=== PATIENT | male | born 1945 | race African-American/Black ===

== ENCOUNTER 2017-08-08 13:44 | Inpatient (IN) | payer MEDICARE ==
[~2017-08-08] VITALS: Ht 182.9 cm; Wt 68.0 kg
[2017-08-08 14:13] VITALS: BP 108/81
[2017-08-08] MEDS ORDERED: Solu-MEDROL 125mg Inj IVP ONE (15:15)
[2017-08-08] MEDS: Albuterol ud Inhalation HHN SCH ×3 (15:22→15:29)
[2017-08-08] MEDS: Ipratropium 0.02% Inh Soln 2.5ml UD HHN SCH ×3 (15:22→15:29)
--- NOTE | 2017-08-08 15:31 | Emergency Room Report ---
History of Present Illness General Chief Complaint: Generalized Weakness Source: Patient Present Illness HPI 72-year-old male with a 66-[id number] history of tobacco use and history of hypertension comes to the ER with a complaint of cough with whitish sputum production for 1 month and shortness of breath He reports no chest pain unless he coughs and currently has no chest pain. He denies hemoptysis, denies fevers, denies leg pain or swelling. He reports he 's been taking inhalers intermittently without much relief. He denies any recent steroid or antibiotic use. Allergies: Coded Allergies: No Known Allergies (Unverified , 08/08/17) Patient History Past Medical History: see triage record Reviewed Nursing Documentation: PMH: Agreed, PSxH: Agreed Nursing Documentation-PMH Hx Hypertension: Yes Review of Systems All Other Systems: negative except mentioned in HPI Physical Exam Vital Signs Date Time Temp Pulse Resp B/P (MAP) Pulse Ox O2 Delivery O2 Flow Rate FiO2 08/08/17 14:08 97.8 88 15 108/81 94 Room Air 97.9 Sp02 EP Interpretation: reviewed, abnormal - RN told me O2 sat was 89% on room air General Appearance: no apparent distress, alert, non-toxic Head: normocephalic Eyes: bilateral eye normal inspection, bilateral eye PERRL, bilateral eye EOMI ENT: normal ENT inspection, hearing grossly normal, normal pharynx, no angioedema, normal voice, moist mucus membranes Neck: normal inspection, full range of motion, supple, supple/symm/no masses Respiratory: chest non-tender, lungs clear - Poor air exchange, normal breath sounds, chest symmetrical, palpation of chest normal Cardiovascular #1: normal peripheral pulses, regular rate, rhythm Cardiovascular #2: 2+ radial (R), 2+ radial (L) Gastrointestinal: normal inspection, non tender, soft, no mass, no guarding, no rebound Rectal: deferred Genitourinary: normal inspection, no CVA tenderness Musculoskeletal: back normal, gait/station normal, normal range of motion, non- tender, no calf tenderness Neurologic: alert, responsive, intermediate card tender III-XII nml as tested, motor strength/tone normal, sensory intact, speech normal Psychiatric: judgement/insight normal, memory normal, mood/affect normal, no suicidal/homicidal ideation Skin: normal color, no rash, warm/dry, normal turgor Lymphatic: no adenopathy Medical Decision Making Medical: COPD Reaction to Intervention: Improved Diagnostic Impression: Primary Impression: COPD exacerbation ER Course Patient with COPD exacerbation, had poor air exchange initially on exam, was given multiple nebulizer treatments as well as IV steroids and felt improvement and had objective improvement in air exchange on exam as well his initial hypoxia is only very mild and improved. She'll be discharged with steroids and a new inhaler and follow-up with his PMD. Diagnosis COPD exacerbation. EKG Diagnostic Results EKG Time: 15:25 EP Interpretation: nsr rate 75, no st-t changes, no twi, no S1Q3T3 Rate: normal Rhythm: NSR ST Segments: no acute changes ASA given to the pt in ED: No - no cp Rhythm Strip Diag. Results Rhythm Strip Time: 15:29 EP Interpretation: yes Rate: 75 Rhythm: NSR, no PVC's, no ectopy Chest X-Ray Diagnostic Results Chest X-Ray Diagnostic Results : Chest X-Ray Ordered: Yes # of Views/Limited/Complete: 1 View Indication: Shortness of Breath EP Interpretation: Yes PA Xray: Interpretation reviewed Interpretation: no consolidation, no effusion, no pneumothorax, no acute cardiopulmonary disease Impression: No acute disease Electronically Signed by: Cecilia Hung MD Last Vital Signs Date Time Temp Pulse Resp B/P (MAP) Pulse Ox O2 Delivery O2 Flow Rate FiO2 08/08/17 14:13 97.8 88 15 108/81 94 Room Air 97.8 Status: improved Reevaluation Impression Patient with likely COPD exacerbation, he had negative Homans sign on exam, he was not tachycardic not having hemoptysis and not having chest pain. He was hypoxic and the nurse charted multiple times O2 sats in the mid 80s on room air on just resting calmly. This may be chronic for him however that is a very low oxygen saturation and he is not set up with home O2. He will need to, Hospital for repeat nebulizer treatments and setting up for home O2 as I suspect he will come more hypoxic with ambulation. Disposition: ADMITTED INPATIENT Condition: Stable Scripts Prednisone* (PREDNISONE*) 20 Mg Tablet 40 MG ORAL DAILY, #5 TAB Prov: CECILIA HUNG M.D 08/08/17 Albuterol Sulfate* (ALBUTEROL SULFATE MDI*) 8.5 Gm Hfa.aer.ad 2 PUFF INH Q4H Y for cough/wheezing, #1 EA 0 Refills Prov: CECILIA HUNG M.D 08/08/17 Referrals: NON PHYSICIAN (PCP) CECILIA HUNG M.D Aug 08, 2017 15:31
[2017-08-08 15:38] LABS: BASOPHILS % (AUTO) 0.5 % (0.0-2.0); HEMATOCRIT 39.5 % (42.0-52.0); HEMOGLOBIN 13.6 G/DL (14.2-18.0); LYMPHOCYTES % (AUTO) 6.6 % (20.0-45.0); MEAN CORPUSCULAR VOLUME 95 FL (80-99); NEUTROPHILS % (AUTO) 82.9 % (45.0-75.0); PLATELET COUNT 129 K/UL (150-450); RED BLOOD COUNT 4.14 M/UL (4.70-6.10); RED CELL DISTRIBUTION WIDTH 11.7 % (11.6-14.8); WHITE BLOOD COUNT 11.7 K/UL (4.8-10.8)
--- NOTE | 2017-08-08 15:51 | Diagnostic Imaging Report ---
Indication: Shortness of breath Technique: One view of the chest Comparison: And Findings: The lungs are hyperinflated. The lungs and pleural spaces are clear. Heart size is normal. Impression: COPD changes. No acute process
[2017-08-08 15:55] LABS: ANION GAP 8 mmol/L (5-15); BLOOD UREA NITROGEN 34 mg/dL (7-18); CALCIUM 8.4 MG/DL (8.5-10.1); CARBON DIOXIDE 29 MMOL/L (21-32); CHLORIDE 100 MMOL/L (98-107); CREATININE 1.4 MG/DL (0.55-1.30); POTASSIUM 4.3 MMOL/L (3.5-5.1); SODIUM 137 MMOL/L (136-145)
[2017-08-08 15:59] LABS: ALANINE AMINOTRANSFERASE 30 U/L (12-78); ALBUMIN 3.2 G/DL (3.4-5.0); ALBUMIN/GLOBULIN RATIO 0.7 (1.0-2.7); ALKALINE PHOSPHATASE 64 U/L (46-116); ASPARTATE AMINO TRANSFERASE 52 U/L (15-37); BILIRUBIN,TOTAL 0.6 MG/DL (0.2-1.0)
[2017-08-08 16:29] VITALS: BP 117/91
[2017-08-08] MEDS ORDERED: PREDNISONE20 MG ORAL (17:20)
[2017-08-08] MEDS ORDERED: ALBUTEROL SULF8.5 GM INH (17:20)
[2017-08-08 17:23] VITALS: BP 122/90
[2017-08-08] MEDS ORDERED: Albuterol ud Inhalation HHN ONE (18:30)
[2017-08-08 19:35] VITALS: BP 110/79
[2017-08-08 20:30] VITALS: BP 115/78
[2017-08-08] MEDS ORDERED: HYDROcodone/Acetamin 10/325 tab ORAL PRN (21:15)
[2017-08-08] MEDS ORDERED: Morphine Sulfate 2mg/ml Inj IVP PRN (21:15)
[2017-08-08] MEDS ORDERED: Albuterol/Ipratropium 3ml neb HHN PRN (21:15)
--- NOTE | 2017-08-08 22:06 | Infectious Diseases Prog Note ---
Assessment/Plan Problems: (1) CAP (community acquired pneumonia) Assessment & Plan: with B/L lower lobes infiltrates and RML infiltrates, will start levaquin empiric coverage, and send sputum culture , monitor CXR (2) COPD exacerbation Assessment & Plan: will start levaquin empiric coverage, continue inhalers , and taper steroids (3) Cough Assessment & Plan: due to the above, continue inhales and oxygen as needed (4) SOB (shortness of breath) Assessment & Plan: due to the above with no evidence of PE on CTA, continue inhalers and symptomatic treatment Subjective Allergies: Coded Allergies: No Known Allergies (Unverified , 08/08/17) Objective Vital Signs Last 24 Hour Vital Signs Date Time Temp Pulse Resp B/P (MAP) Pulse Ox O2 Delivery O2 Flow Rate FiO2 08/08/17 21:45 96 Nasal Cannula 3.0 32 08/08/17 21:40 Nasal Cannula 3.0 32 08/08/17 20:30 98.8 84 17 115/78 96 Nasal Cannula 2.0 209.8 08/08/17 20:30 98.8 84 17 115/78 96 Nasal Cannula 2.0 98.8 08/08/17 19:35 98.7 87 16 110/79 97 Nasal Cannula 2.0 98.7 08/08/17 19:23 85 17 95 Nasal Cannula 2.0 28 08/08/17 18:35 28 08/08/17 18:34 85 17 95 Nasal Cannula 2.0 28 08/08/17 17:23 85 17 122/90 82 Room Air 08/08/17 16:29 98.9 87 14 117/91 93 Nasal Cannula 2.0 98.9 08/08/17 15:50 82 14 100 Nasal Cannula 2.0 28 08/08/17 15:25 80 16 95 Nasal Cannula 2.0 28 08/08/17 15:25 80 16 Nasal Cannula 2.0 28 08/08/17 14:13 97.8 88 15 108/81 94 Room Air 97.8 08/08/17 14:08 97.8 88 15 108/81 94 Room Air 97.9 Height (Feet): 6 Weight (Pounds): 150 Laboratory Tests Test 08/08/17 15:20 08/08/17 15:25 White Blood Count 11.7 K/UL (4.8-10.8) H Red Blood Count 4.14 M/UL (4.70-6.10) L Hemoglobin 13.6 G/DL (14.2-18.0) L Hematocrit 39.5 % (42.0-52.0) L Mean Corpuscular Volume 95 FL (80-99) Mean Corpuscular Hemoglobin 32.9 PG (27.0-31.0) H Mean Corpuscular Hemoglobin Concent 34.5 G/DL (32.0-36.0) Red Cell Distribution Width 11.7 % (11.6-14.8) Platelet Count 129 K/UL (150-450) L Mean Platelet Volume 8.0 FL (6.5-10.1) Neutrophils (%) (Auto) 82.9 % (45.0-75.0) H Lymphocytes (%) (Auto) 6.6 % (20.0-45.0) L Monocytes (%) (Auto) 10.0 % (1.0-10.0) Eosinophils (%) (Auto) 0.0 % (0.0-3.0) Basophils (%) (Auto) 0.5 % (0.0-2.0) Sodium Level 137 MMOL/L (136-145) Potassium Level 4.3 MMOL/L (3.5-5.1) Chloride Level 100 MMOL/L (98-107) Carbon Dioxide Level 29 MMOL/L (21-32) Anion Gap 8 mmol/L (5-15) Blood Urea Nitrogen 34 mg/dL (7-18) H Creatinine 1.4 MG/DL (0.55-1.30) H Estimat Glomerular Filtration Rate mL/min (>60) Glucose Level 118 MG/DL (74-106) H Calcium Level 8.4 MG/DL (8.5-10.1) L Total Bilirubin 0.6 MG/DL (0.2-1.0) Aspartate Amino Transf (AST/SGOT) 52 U/L (15-37) H Alanine Aminotransferase (ALT/SGPT) 30 U/L (12-78) Alkaline Phosphatase 64 U/L (46-116) Troponin I 0.000 ng/mL (0.000-0.056) Total Protein 7.5 G/DL (6.4-8.2) Albumin 3.2 G/DL (3.4-5.0) L Globulin 4.3 g/dL Albumin/Globulin Ratio 0.7 (1.0-2.7) L Arterial Blood pH 7.380 (7.350-7.450) Arterial Blood Partial Pressure CO2 47.9 mmHg (35.0-45.0) H Arterial Blood Partial Pressure O2 55.3 mmHg (75.0-100.0) L Arterial Blood HCO3 27.8 mmol/L (22.0-26.0) H Arterial Blood Oxygen Saturation 86.4 % (92.0-98.0) L Arterial Blood Base Excess 2.0 Manuel Test Positive Current Medications Medications (Trade) Dose Ordered Sig/Sandie Route PRN Reason Start Time Stop Time Status Last Admin Dose Admin Acetaminophen (Tylenol) 650 mg Q4H PRN ORAL Mild Pain (Pain Scale 1-3) 08/08/17 21:15 09/07/17 21:14 Acetaminophen/ Hydrocodone Bitart ([place] 10/325) 1 tab Q4H PRN ORAL Moderate Pain (Pain Scale 4-6) 08/08/17 21:15 08/15/17 21:14 Albuterol/ Ipratropium (Albuterol/ Ipratropium) 3 ml Q4HR PRN HHN Shortness of Breath 08/08/17 21:15 08/13/17 21:14 Dextrose (Dextrose 50%) STAT PRN IV Hypoglycemia 08/08/17 21:15 09/07/17 21:14 Heparin Sodium (Porcine) (Heparin 5000 units/ml) 5,000 units EVERY 12 HOURS SUBQ 08/09/17 09:00 09/08/17 08:59 Methylprednisolone Sodium Succinate (Solu-MEDROL) 40 mg EVERY 8 HOURS IVP 08/08/17 22:00 09/07/17 21:59 Morphine Sulfate (Morphine Sulfate) 2 mg Q4HR PRN IVP Severe Pain (Pain Scale 7-10) 08/08/17 21:15 08/15/17 21:14 Ondansetron HCl (Zofran) 4 mg Q6H PRN IVP Nausea & Vomiting 08/08/17 21:15 09/07/17 21:14 Linda Roca M.D. Aug 08, 2017 22:06
[2017-08-08] MEDS: Solu-MEDROL 40mg Inj IVP SCH (22:24)
[2017-08-09 04:00] VITALS: BP 103/75
[2017-08-09 06:51] LABS: ANION GAP 9 mmol/L (5-15); BLOOD UREA NITROGEN 27 mg/dL (7-18); CALCIUM 8.6 MG/DL (8.5-10.1); CARBON DIOXIDE 29 MMOL/L (21-32); CHLORIDE 100 MMOL/L (98-107); CREATININE 1.3 MG/DL (0.55-1.30); POTASSIUM 3.7 MMOL/L (3.5-5.1); SODIUM 138 MMOL/L (136-145)
[2017-08-09] MEDS: Solu-MEDROL 40mg Inj IVP SCH ×2 (06:53→21:56)
[2017-08-09 06:58] LABS: HEMATOCRIT 37.1 % (42.0-52.0); HEMOGLOBIN 12.6 G/DL (14.2-18.0); MEAN CORPUSCULAR VOLUME 96 FL (80-99); PLATELET COUNT 124 K/UL (150-450); RED BLOOD COUNT 3.87 M/UL (4.70-6.10); RED CELL DISTRIBUTION WIDTH 11.9 % (11.6-14.8); WHITE BLOOD COUNT 16.1 K/UL (4.8-10.8)
[2017-08-09] MEDS: Heparin 5000 units/ml inj SUBQ SCH ×2 (08:18→21:57)
[2017-08-09 09:00] VITALS: BP 100/73
--- NOTE | 2017-08-09 09:44 | Diagnostic Imaging Report ---
Indication: Dyspnea Technique: CT pulmonary angiogram performed utilizing automated exposure control with intravenous contrast. Axial, sagittal and coronal reconstructions were obtained. 3-D volumetric reconstructions were also performed. CT dose: Total DLP 603.83 mGycm; CTDI vol 13.94 mGy Comparison: Correlation made to concurrent chest radiograph. Findings: Adequate opacification of the pulmonary arteries was achieved. There is no embolism. There is aneurysmal dilatation of the ascending aorta measuring up to proximal by 4 cm. No evidence of aortic dissection. There is common origin of the right brachiocephalic and left common carotid arteries, a normal anatomic variant. Visualized portions of the abdominal aorta normal in caliber. Emphysematous changes are noted in the lungs, more pronounced in the upper lungs. Bilateral lower lobe and right middle lobe infiltrates are noted. There is peribronchial thickening and debris in small airways. There is no pleural effusion or pneumothorax. Heart size within normal limits. There is no pericardial effusion. A low-attenuation focus is noted within the left kidney, too small to fully characterize but possibly representing a cyst. No acute bony abnormality is seen. IMPRESSION: No evidence of pulmonary embolism. Aneurysmal dilatation of the ascending aorta up to 4 cm area Pulmonary emphysema with bilateral lower lobe and right middle lobe infiltrates and peribronchial thickening with debris in the small airways. Additional findings as above. The CT scanner at [facility] is accredited by the [employer] and the scans are performed using protocols designed to limit radiation exposure to as low as reasonably achievable to attain images of sufficient resolution adequate for diagnostic evaluation.
[2017-08-09 12:00] VITALS: BP 106/75
--- NOTE | 2017-08-09 14:26 | Infectious Diseases Prog Note ---
Assessment/Plan Problems: (1) CAP (community acquired pneumonia) Assessment & Plan: with B/L lower lobes infiltrates and RML infiltrates, continue levaquin empiric coverage, and send sputum culture , monitor CXR (2) COPD exacerbation Assessment & Plan: continue levaquin empiric coverage, continue inhalers , and taper steroids (3) Cough Assessment & Plan: due to the above, continue inhales and oxygen as needed (4) SOB (shortness of breath) Assessment & Plan: due to the above with no evidence of PE on CTA, continue inhalers and symptomatic treatment Subjective Constitutional: Reports: no symptoms HEENT: Reports: no symptoms Respiratory: Reports: shortness of breath, productive cough Breasts: Reports: no symptoms Cardiovascular: Reports: no symptoms Gastrointestinal/Abdominal: Reports: no symptoms Genitourinary: Reports: no symptoms Neurologic: Reports: no symptoms Psychiatric: Reports: no symptoms Skin: Reports: no symptoms Endocrine: Reports: no symptoms Hematologic: Reports: no symptoms Musculoskeletal: Reports: no symptoms Allergies: Coded Allergies: No Known Allergies (Unverified , 08/08/17) Objective Vital Signs Last 24 Hour Vital Signs Date Time Temp Pulse Resp B/P (MAP) Pulse Ox O2 Delivery O2 Flow Rate FiO2 08/09/17 12:00 98.2 79 20 106/75 92 98.2 08/09/17 12:00 85 08/09/17 09:00 98.1 81 20 100/73 93 98.1 08/09/17 08:14 94 Nasal Cannula 2.0 28 08/09/17 08:14 86 20 Nasal Cannula 2.0 28 08/09/17 08:14 Nasal Cannula 2.0 28 08/09/17 08:00 84 08/09/17 04:00 78 08/09/17 04:00 97.9 81 20 103/75 95 97.9 08/08/17 21:45 96 Nasal Cannula 3.0 32 08/08/17 21:40 Nasal Cannula 3.0 32 08/08/17 20:30 98.8 84 17 115/78 96 Nasal Cannula 2.0 209.8 08/08/17 20:30 98.8 84 17 115/78 96 Nasal Cannula 2.0 98.8 08/08/17 19:35 98.7 87 16 110/79 97 Nasal Cannula 2.0 98.7 08/08/17 19:23 85 17 95 Nasal Cannula 2.0 28 08/08/17 18:35 28 08/08/17 18:34 85 17 95 Nasal Cannula 2.0 28 08/08/17 17:23 85 17 122/90 82 Room Air 08/08/17 16:29 98.9 87 14 117/91 93 Nasal Cannula 2.0 98.9 08/08/17 15:50 82 14 100 Nasal Cannula 2.0 28 08/08/17 15:25 80 16 95 Nasal Cannula 2.0 28 08/08/17 15:25 80 16 Nasal Cannula 2.0 28 Height (Feet): 6 Height (Inches): 0.00 Weight (Pounds): 150 General Appearance: WD/WN, no acute distress HEENT: normocephalic, atraumatic, anicteric, mucous membranes moist, PERRL Respiratory/Chest: chest wall non-tender, no respiratory distress, no accessory muscle use, decreased breath sounds, crackles/rales, inspiratory wheezing Cardiovascular: normal peripheral pulses, normal rate, regular rhythm, no gallop/murmur, no JVD Abdomen: normal bowel sounds, soft, non tender, no organomegaly, non distended , no mass, no scars Genitourinary: normal external genitalia Extremities: no cyanosis, no clubbing Skin: no rash, no lesions, no ulcers Neurologic/Psychiatric: alert, oriented x 3, responsive Lymphatic: no neck adenopathy, no groin adenopathy Laboratory Tests Test 08/08/17 15:20 08/08/17 15:25 08/09/17 05:50 White Blood Count 11.7 K/UL (4.8-10.8) H 16.1 K/UL (4.8-10.8) H Red Blood Count 4.14 M/UL (4.70-6.10) L 3.87 M/UL (4.70-6.10) L Hemoglobin 13.6 G/DL (14.2-18.0) L 12.6 G/DL (14.2-18.0) L Hematocrit 39.5 % (42.0-52.0) L 37.1 % (42.0-52.0) L Mean Corpuscular Volume 95 FL (80-99) 96 FL (80-99) Mean Corpuscular Hemoglobin 32.9 PG (27.0-31.0) H 32.6 PG (27.0-31.0) H Mean Corpuscular Hemoglobin Concent 34.5 G/DL (32.0-36.0) 34.0 G/DL (32.0-36.0) Red Cell Distribution Width 11.7 % (11.6-14.8) 11.9 % (11.6-14.8) Platelet Count 129 K/UL (150-450) L 124 K/UL (150-450) L Mean Platelet Volume 8.0 FL (6.5-10.1) 7.9 FL (6.5-10.1) Neutrophils (%) (Auto) 82.9 % (45.0-75.0) H % (45.0-75.0) Lymphocytes (%) (Auto) 6.6 % (20.0-45.0) L % (20.0-45.0) Monocytes (%) (Auto) 10.0 % (1.0-10.0) % (1.0-10.0) Eosinophils (%) (Auto) 0.0 % (0.0-3.0) % (0.0-3.0) Basophils (%) (Auto) 0.5 % (0.0-2.0) % (0.0-2.0) Sodium Level 137 MMOL/L (136-145) 138 MMOL/L (136-145) Potassium Level 4.3 MMOL/L (3.5-5.1) 3.7 MMOL/L (3.5-5.1) Chloride Level 100 MMOL/L (98-107) 100 MMOL/L (98-107) Carbon Dioxide Level 29 MMOL/L (21-32) 29 MMOL/L (21-32) Anion Gap 8 mmol/L (5-15) 9 mmol/L (5-15) Blood Urea Nitrogen 34 mg/dL (7-18) H 27 mg/dL (7-18) H Creatinine 1.4 MG/DL (0.55-1.30) H 1.3 MG/DL (0.55-1.30) Estimat Glomerular Filtration Rate mL/min (>60) mL/min (>60) Glucose Level 118 MG/DL (74-106) H 178 MG/DL (74-106) H Calcium Level 8.4 MG/DL (8.5-10.1) L 8.6 MG/DL (8.5-10.1) Total Bilirubin 0.6 MG/DL (0.2-1.0) Aspartate Amino Transf (AST/SGOT) 52 U/L (15-37) H Alanine Aminotransferase (ALT/SGPT) 30 U/L (12-78) Alkaline Phosphatase 64 U/L (46-116) Troponin I 0.000 ng/mL (0.000-0.056) Total Protein 7.5 G/DL (6.4-8.2) Albumin 3.2 G/DL (3.4-5.0) L Globulin 4.3 g/dL Albumin/Globulin Ratio 0.7 (1.0-2.7) L Arterial Blood pH 7.380 (7.350-7.450) Arterial Blood Partial Pressure CO2 47.9 mmHg (35.0-45.0) H Arterial Blood Partial Pressure O2 55.3 mmHg (75.0-100.0) L Arterial Blood HCO3 27.8 mmol/L (22.0-26.0) H Arterial Blood Oxygen Saturation 86.4 % (92.0-98.0) L Arterial Blood Base Excess 2.0 Manuel Test Positive Differential Total Cells Counted 100 Neutrophils % (Manual) 82 % (45-75) H Lymphocytes % (Manual) 2 % (20-45) L Monocytes % (Manual) 10 % (1-10) Eosinophils % (Manual) 0 % (0-3) Basophils % (Manual) 0 % (0-2) Band Neutrophils 6 % (0-8) Platelet Estimate Decreased L Platelet Morphology Normal Red Blood Cell Morphology Normal Current Medications Medications (Trade) Dose Ordered Sig/Sandie Route PRN Reason Start Time Stop Time Status Last Admin Dose Admin Acetaminophen (Tylenol) 650 mg Q4H PRN ORAL Mild Pain (Pain Scale 1-3) 08/08/17 21:15 09/07/17 21:14 Acetaminophen/ Hydrocodone Bitart ([place] 10/325) 1 tab Q4H PRN ORAL Moderate Pain (Pain Scale 4-6) 08/08/17 21:15 08/15/17 21:14 Albuterol/ Ipratropium (Albuterol/ Ipratropium) 3 ml Q4HR PRN HHN Shortness of Breath 08/08/17 21:15 08/13/17 21:14 Dextrose (Dextrose 50%) STAT PRN IV Hypoglycemia 08/08/17 21:15 09/07/17 21:14 Heparin Sodium (Porcine) (Heparin 5000 units/ml) 5,000 units EVERY 12 HOURS SUBQ 08/09/17 09:00 09/08/17 08:59 08/09/17 08:18 Levofloxacin 100 ml @ 100 mls/hr Q24H IVPB 08/09/17 22:00 08/16/17 21:59 Methylprednisolone Sodium Succinate (Solu-MEDROL) 40 mg EVERY 12 HOURS IVP 08/09/17 21:00 09/07/17 21:59 Morphine Sulfate (Morphine Sulfate) 2 mg Q4HR PRN IVP Severe Pain (Pain Scale 7-10) 08/08/17 21:15 08/15/17 21:14 Ondansetron HCl (Zofran) 4 mg Q6H PRN IVP Nausea & Vomiting 08/08/17 21:15 09/07/17 21:14 Linda Roca M.D. Aug 09, 2017 14:26
[2017-08-09 16:00] VITALS: BP 104/77
--- NOTE | 2017-08-09 17:30 | History and Physical ---
History of Present Illness General Date patient seen: Aug 09, 2017 Reason for Hospitalization: Generalized Weakness Present Illness HPI This is a 72-year-old male with a 34-[id number]-[id number] history of tobacco use and history of hypertension who presented to the ER c/o cough with whitish sputum production for 1 month and shortness of breath. He denied chest pain. He denied hemoptysis, fevers, or chills. He reports he's been using inhalers intermittently without much relief. He denies any recent steroid or antibiotic use. He was admitted for further care. Allergies: Coded Allergies: No Known Allergies (Unverified , 08/08/17) Medication History Scheduled Prednisone* (Prednisone*), 40 MG ORAL DAILY Scheduled PRN Albuterol Sulfate* (Albuterol Sulfate Mdi*), 2 PUFF INH Q4H PRN for cough/ wheezing Patient History History Provided By: Patient Healthcare decision maker Jessica Robles daughter Resuscitation status Full Code Advanced Directive on File No Past Medical/Surgical History Past Medical/Surgical History: (1) COPD (chronic obstructive pulmonary disease) (2) HTN (hypertension) Review of Systems All Other Systems: negative except mentioned in HPI Physical Exam General Appearance: WD/WN, no apparent distress HEENT: normocephalic Neck: supple Respiratory/Chest: decreased breath sounds Cardiovascular/Chest: normal rate, regular rhythm Abdomen: non tender, soft Extremities: no edema Neurologic: alert, oriented x 3 Last 24 Hour Vital Signs Date Time Temp Pulse Resp B/P (MAP) Pulse Ox O2 Delivery O2 Flow Rate FiO2 08/09/17 16:00 98.2 75 20 104/77 94 98.2 08/09/17 12:00 98.2 79 20 106/75 92 98.2 08/09/17 12:00 85 08/09/17 09:00 98.1 81 20 100/73 93 98.1 08/09/17 08:14 94 Nasal Cannula 2.0 28 08/09/17 08:14 86 20 Nasal Cannula 2.0 28 08/09/17 08:14 Nasal Cannula 2.0 28 08/09/17 08:00 84 08/09/17 04:00 78 08/09/17 04:00 97.9 81 20 103/75 95 97.9 08/08/17 21:45 96 Nasal Cannula 3.0 32 08/08/17 21:40 Nasal Cannula 3.0 32 3/16/18 20:30 98.8 84 17 115/78 96 Nasal Cannula 2.0 209.8 08/08/17 20:30 98.8 84 17 115/78 96 Nasal Cannula 2.0 98.8 08/08/17 19:35 98.7 87 16 110/79 97 Nasal Cannula 2.0 98.7 08/08/17 19:23 85 17 95 Nasal Cannula 2.0 28 08/08/17 18:35 28 08/08/17 18:34 85 17 95 Nasal Cannula 2.0 28 Intake and Output 08/08/17 08/09/17 19:00 07:00 Intake Total 0 ml 120 ml Balance 0 ml 120 ml Intake Oral 0 ml 120 ml Laboratory Tests Test 08/09/17 05:50 White Blood Count 16.1 K/UL (4.8-10.8) H Red Blood Count 3.87 M/UL (4.70-6.10) L Hemoglobin 12.6 G/DL (14.2-18.0) L Hematocrit 37.1 % (42.0-52.0) L Mean Corpuscular Volume 96 FL (80-99) Mean Corpuscular Hemoglobin 32.6 PG (27.0-31.0) H Mean Corpuscular Hemoglobin Concent 34.0 G/DL (32.0-36.0) Red Cell Distribution Width 11.9 % (11.6-14.8) Platelet Count 124 K/UL (150-450) L Mean Platelet Volume 7.9 FL (6.5-10.1) Neutrophils (%) (Auto) % (45.0-75.0) Lymphocytes (%) (Auto) % (20.0-45.0) Monocytes (%) (Auto) % (1.0-10.0) Eosinophils (%) (Auto) % (0.0-3.0) Basophils (%) (Auto) % (0.0-2.0) Differential Total Cells Counted 100 Neutrophils % (Manual) 82 % (45-75) H Lymphocytes % (Manual) 2 % (20-45) L Monocytes % (Manual) 10 % (1-10) Eosinophils % (Manual) 0 % (0-3) Basophils % (Manual) 0 % (0-2) Band Neutrophils 6 % (0-8) Platelet Estimate Decreased L Platelet Morphology Normal Red Blood Cell Morphology Normal Sodium Level 138 MMOL/L (136-145) Potassium Level 3.7 MMOL/L (3.5-5.1) Chloride Level 100 MMOL/L (98-107) Carbon Dioxide Level 29 MMOL/L (21-32) Anion Gap 9 mmol/L (5-15) Blood Urea Nitrogen 27 mg/dL (7-18) H Creatinine 1.3 MG/DL (0.55-1.30) Estimat Glomerular Filtration Rate mL/min (>60) Glucose Level 178 MG/DL (74-106) H Calcium Level 8.6 MG/DL (8.5-10.1) Height (Feet): 6 Height (Inches): 0.00 Weight (Pounds): 150 Medications Current Medications Medications (Trade) Dose Ordered Sig/Sandie Route PRN Reason Start Time Stop Time Status Last Admin Dose Admin Acetaminophen (Tylenol) 650 mg Q4H PRN ORAL Mild Pain (Pain Scale 1-3) 08/08/17 21:15 09/07/17 21:14 Acetaminophen/ Hydrocodone Bitart ([place] 10/325) 1 tab Q4H PRN ORAL Moderate Pain (Pain Scale 4-6) 08/08/17 21:15 08/15/17 21:14 Albuterol/ Ipratropium (Albuterol/ Ipratropium) 3 ml Q4HR PRN HHN Shortness of Breath 08/08/17 21:15 08/13/17 21:14 Dextrose (Dextrose 50%) STAT PRN IV Hypoglycemia 08/08/17 21:15 09/07/17 21:14 Heparin Sodium (Porcine) (Heparin 5000 units/ml) 5,000 units EVERY 12 HOURS SUBQ 08/09/17 09:00 09/08/17 08:59 08/09/17 08:18 Levofloxacin 100 ml @ 100 mls/hr Q24H IVPB 08/09/17 22:00 08/16/17 21:59 Methylprednisolone Sodium Succinate (Solu-MEDROL) 40 mg EVERY 12 HOURS IVP 08/09/17 21:00 09/07/17 21:59 Morphine Sulfate (Morphine Sulfate) 2 mg Q4HR PRN IVP Severe Pain (Pain Scale 7-10) 08/08/17 21:15 08/15/17 21:14 Ondansetron HCl (Zofran) 4 mg Q6H PRN IVP Nausea & Vomiting 08/08/17 21:15 09/07/17 21:14 Assessment/Plan Problem List: (1) COPD exacerbation ICD Codes: J44.1 - Chronic obstructive pulmonary disease with (acute) exacerbation SNOMED: 698752063 (2) CAP (community acquired pneumonia) ICD Codes: J18.9 - Pneumonia, unspecified organism SNOMED: 248084833 (3) SOB (shortness of breath) ICD Codes: R06.02 - Shortness of breath SNOMED: 986597436 (4) HTN (hypertension) ICD Codes: I10 - Essential (primary) hypertension SNOMED: 28656893 Assessment/Plan ID consulted. Empiric abx per ID. Cardio and Pulmonary consult. Steroids. Breathing tx. DVT ppx. Resume home meds. DAMION LUDWIG Aug 09, 2017 17:30
--- NOTE | 2017-08-09 17:45 | Cardiac Electrophysiology PN ---
Subjective Subjective Cardiology consult [id number] Objective Last 24 Hour Vital Signs Date Time Temp Pulse Resp B/P (MAP) Pulse Ox O2 Delivery O2 Flow Rate FiO2 08/09/17 16:00 98.2 75 20 104/77 94 98.2 08/09/17 12:00 98.2 79 20 106/75 92 98.2 08/09/17 12:00 85 08/09/17 09:00 98.1 81 20 100/73 93 98.1 08/09/17 08:14 94 Nasal Cannula 2.0 28 08/09/17 08:14 86 20 Nasal Cannula 2.0 28 08/09/17 08:14 Nasal Cannula 2.0 28 08/09/17 08:00 84 08/09/17 04:00 78 08/09/17 04:00 97.9 81 20 103/75 95 97.9 08/08/17 21:45 96 Nasal Cannula 3.0 32 08/08/17 21:40 Nasal Cannula 3.0 32 08/08/17 20:30 98.8 84 17 115/78 96 Nasal Cannula 2.0 209.8 08/08/17 20:30 98.8 84 17 115/78 96 Nasal Cannula 2.0 98.8 08/08/17 19:35 98.7 87 16 110/79 97 Nasal Cannula 2.0 98.7 08/08/17 19:23 85 17 95 Nasal Cannula 2.0 28 08/08/17 18:35 28 08/08/17 18:34 85 17 95 Nasal Cannula 2.0 28 Intake and Output 08/08/17 08/09/17 19:00 07:00 Intake Total 0 ml 120 ml Balance 0 ml 120 ml Intake Oral 0 ml 120 ml Laboratory Tests Test 08/09/17 05:50 White Blood Count 16.1 K/UL (4.8-10.8) H Red Blood Count 3.87 M/UL (4.70-6.10) L Hemoglobin 12.6 G/DL (14.2-18.0) L Hematocrit 37.1 % (42.0-52.0) L Mean Corpuscular Volume 96 FL (80-99) Mean Corpuscular Hemoglobin 32.6 PG (27.0-31.0) H Mean Corpuscular Hemoglobin Concent 34.0 G/DL (32.0-36.0) Red Cell Distribution Width 11.9 % (11.6-14.8) Platelet Count 124 K/UL (150-450) L Mean Platelet Volume 7.9 FL (6.5-10.1) Neutrophils (%) (Auto) % (45.0-75.0) Lymphocytes (%) (Auto) % (20.0-45.0) Monocytes (%) (Auto) % (1.0-10.0) Eosinophils (%) (Auto) % (0.0-3.0) Basophils (%) (Auto) % (0.0-2.0) Differential Total Cells Counted 100 Neutrophils % (Manual) 82 % (45-75) H Lymphocytes % (Manual) 2 % (20-45) L Monocytes % (Manual) 10 % (1-10) Eosinophils % (Manual) 0 % (0-3) Basophils % (Manual) 0 % (0-2) Band Neutrophils 6 % (0-8) Platelet Estimate Decreased L Platelet Morphology Normal Red Blood Cell Morphology Normal Sodium Level 138 MMOL/L (136-145) Potassium Level 3.7 MMOL/L (3.5-5.1) Chloride Level 100 MMOL/L (98-107) Carbon Dioxide Level 29 MMOL/L (21-32) Anion Gap 9 mmol/L (5-15) Blood Urea Nitrogen 27 mg/dL (7-18) H Creatinine 1.3 MG/DL (0.55-1.30) Estimat Glomerular Filtration Rate mL/min (>60) Glucose Level 178 MG/DL (74-106) H Calcium Level 8.6 MG/DL (8.5-10.1) VICTOR M SPENCER Aug 09, 2017 17:44
[2017-08-09 20:00] VITALS: BP 123/78
--- NOTE | 2017-08-09 20:45 | Consultation ---
DATE OF CONSULTATION: 08/09/2017 PULMONARY CONSULTATION CONSULTING PHYSICIAN: Augustus Fink M.D. HISTORY OF PRESENT ILLNESS: This is a 72-year-old male with history of chronic tobacco use. He has also known hypertension, who came to the hospital yesterday because of cough and production. He sees doctors in the [place] area, but has been traveling here for family. He was seen and worked up, found to have exacerbation of COPD and admitted to the hospital with same. PAST MEDICAL HISTORY: COPD and hypertension. MEDICATIONS: List of home medications reviewed and reconciled in the chart. REVIEW OF SYSTEMS: Denies any headaches, hematemesis, melena, hematochezia, night sweats, or weight loss. PHYSICAL EXAMINATION: GENERAL: Reveals a 72-year-old male. HEENT: Unremarkable. LUNGS: He has decreased breath sounds bilaterally. ABDOMEN: Soft. NEUROLOGICAL: Nonfocal. IMAGING STUDIES: There is aneurysmal dilatation of the aorta up to 4 cm, there is emphysema bilaterally as well as right middle lobe infiltrate, there is no PE noted. LABORATORY DATA: Lab testing notable also for white count 16,000 this morning, otherwise normal. IMPRESSION: 1. Exacerbation of COPD. 2. Right lung pneumonia. 3. Hypertension. DISCUSSION: The patient has been seen by ID and started on empiric antibiotics. I will continue steroids, decrease the dose, order pulmonary hygiene and oxygen. 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 Augustus Fink M.D. DR: Kim JOB#: [id number] CC:
--- NOTE | 2017-08-09 22:15 | Consultation ---
DATE OF CONSULTATION: 08/09/2017 INFECTIOUS DISEASE CONSULTATION CONSULTING PHYSICIAN: Linda Roca M.D. REQUESTING PHYSICIAN: Joel Perez M.D. REASON FOR CONSULTATION: COPD exacerbation, acute bronchitis, recommendation for antibiotics treatment. HISTORY OF PRESENT ILLNESS: The patient is a 72-year-old male with past medical history of tobacco abuse for 50 years who quit smoking three weeks ago and hypertension, presented to [facility] emergency room with worsening cough and shortness of breath for the last month. The patient had a cough, initially was dry, but later has been productive of yellowish phlegm. This has been associated with shortness of breath with activities. He also gets dyspnea when he exerts himself too. The patient denied any recent travel or sick contact. Denied any recent upper respiratory infection. Denied any hemoptysis, fever or chills, leg swelling, or any other symptoms. In the emergency room, the patient was saturating 94% on room air with temperature of 97.8 degrees. He had a chest x-ray. It showed no acute process or disease. The patient was given IV antibiotics. Infectious Disease consultation was requested for further evaluation and management of his respiratory infection. PAST MEDICAL HISTORY: Significant for tobacco abuse, COPD, and hypertension. PAST SURGICAL HISTORY: Not on record. MEDICATIONS: The patient received levofloxacin and received prednisolone in the emergency room. For the rest of his medications, please refer to [facility]. ALLERGIES: He has no known allergies. SOCIAL HISTORY: The patient lives at home with family. He is a smoker for 50 years, one to two packets per year, quit three weeks ago. No drugs or alcohol. FAMILY HISTORY: Noncontributory. REVIEW OF SYSTEMS: A 14-point of systems reviewed were all negative apart from the one I mentioned above in my History and Physical. PHYSICAL EXAMINATION: GENERAL: Elderly male, sitting in bed, awake, alert, coughing, not in acute distress. VITAL SIGNS: Temperature 98.2 degrees, pulse 79, respirations 20, blood pressure 106/75 and saturation 92% on 2 liters nasal cannula. HEENT: Normocephalic and atraumatic. Pupils both reactive to light. Moist oral mucosa. No exudate or thrush. NECK: Supple. No lymphadenopathy. CARDIOVASCULAR: Regular rate and rhythm. No murmur. No gallop. LUNGS: He had diminished breathing sounds on the bases with right lower lobe wheezing. Normal breathing effort. Poor air entry to both lung bella. ABDOMEN: Soft, nontender, and nondistended. Normal bowel sounds. No hepatosplenomegaly. No ascites. EXTREMITIES: No edema or cyanosis. No clubbing. SKIN: No rash. No hives. LABORATORY AND DIAGNOSTIC DATA: Labs showed white count of 16.1, hemoglobin of 12.6, and platelet count of 124. BUN of 27 and creatinine of 1.3. Imaging, chest x-ray on admission showed COPD changes, no acute process. CT angiogram of the chest showed no evidence of pulmonary embolism with aneurysmal dilatation of the ascending aorta up to 4 cm area, pulmonary emphysema with bilateral lower lobe and right middle lobe infiltrate, and peribronchial thickening with debris in the small airways. ASSESSMENT AND RECOMMENDATION: 1. Community-acquired pneumonia with bilateral lower lobe infiltrates and right middle lobe infiltrates. We will start the patient on Levaquin empiric coverage for now for community-acquired pneumonia. Monitor chest x-ray. We will send sputum for culture if he produces any during his hospitalization. Continue oxygen nebulizer treatment. 2. Chronic obstructive pulmonary disease exacerbation. The patient will be on Levaquin empiric coverage. Continue inhalers, taper steroid as needed. 3. Cough with shortness of breath due to the above. No evidence of PE, most likely due to pneumonia and chronic obstructive pulmonary disease exacerbation. Continue nebulizer treatment and oxygen. Use mucolytics as needed. Thank you for the consult. Infectious Disease will continue to follow. Linda Roca M.D. DR: MAKENZIE JOB#: [id number] CC:
[2017-08-09] MEDS ORDERED: guaiFENesin 100mg/5ml Liq ud ORAL PRN (23:00)
[2017-08-10] VITALS: BP 102/73
--- NOTE | 2017-08-10 03:15 | Consultation ---
DATE OF CONSULTATION: 08/09/2017 CARDIOLOGY CONSULTATION CONSULTING PHYSICIAN: Talib Coelho M.D. REFERRING PHYSICIAN: Joel Perez M.D. REASON FOR CONSULTATION: Hypertension and shortness of breath. HISTORY OF PRESENT ILLNESS: The patient is a 72-year-old gentleman with [id number] smoking history and hypertension, presented to the emergency room with cough and productive white sputum as well as shortness of breath. The patient did not have any chest pain or syncope or presyncope. Denies hemoptysis, nausea, vomiting or diarrhea. He denies any prior myocardial infarction or coronary artery disease. The patient was admitted and a Cardiology consultation was obtained for further evaluation and management. PAST MEDICAL HISTORY: 1. Hypertension. 2. Asthma. SOCIAL HISTORY: He lives at home. He has been a heavy smoker in the past, but he said he recently quit. FAMILY HISTORY: Noncontributory. REVIEW OF SYSTEMS: Review of systems was negative other than what was mentioned in the history of present illness. PHYSICAL EXAMINATION: VITAL SIGNS: Blood pressure is 104/77, pulse 75, respirations 18, and temperature 98.2 degrees. HEAD AND NECK: Showed no JVD. LUNGS: Coarse rhonchi with wheezes. CARDIOVASCULAR: Shows regular S1 and S2 with no gallop or murmur. ABDOMEN: Soft and nontender. EXTREMITIES: No pitting edema. LABORATORY AND DIAGNOSTIC DATA: His EKG showed normal sinus rhythm with right atrial enlargement. Labs show white count of 16.1, hemoglobin 12.6, hematocrit 37.1, and platelet count of 124. Sodium 138, potassium 3.7, BUN of 27, creatinine 1.3, and glucose of 178. His troponin is negative. Albumin is 3.2. ASSESSMENT AND PLAN: 1. Shortness of breath. We will completely rule out [place] protocol and get an echocardiogram to evaluate for ejection fraction and wall motion abnormality, but this is likely to COPD. We will also check his brain natriuretic peptide as well for further evaluation. 2. COPD and asthma and pneumonia, on Solu-Medrol, Levaquin and albuterol. 3. History of hypertension. Blood pressure currently is stable. We will watch the patient. Thank you very much, Dr. Perez, for allowing me to participate in the care of this patient. Please do not hesitate to contact me if you have any questions regarding my evaluation. Talib Coelho M.D. DR: SARITA JOB#: [id number] CC:
[2017-08-10 04:00] VITALS: BP 99/75
[2017-08-10] MEDS ORDERED: guaiFENesin 100mg/5ml Liq ud ORAL PRN (07:30)
[2017-08-10 08:00] VITALS: BP 132/92
[2017-08-10] MEDS: Solu-MEDROL 40mg Inj IVP SCH ×2 (08:49→21:56)
[2017-08-10] MEDS: Heparin 5000 units/ml inj SUBQ SCH ×2 (08:50→21:54)
[2017-08-10 10:16] LABS: ANION GAP 6 mmol/L (5-15); BLOOD UREA NITROGEN 31 mg/dL (7-18); CARBON DIOXIDE 32 MMOL/L (21-32); CHLORIDE 101 MMOL/L (98-107); CREATININE 1.1 MG/DL (0.55-1.30); POTASSIUM 3.9 MMOL/L (3.5-5.1); SODIUM 139 MMOL/L (136-145)
--- NOTE | 2017-08-10 11:18 | Pulmonology Progress Note ---
Assessment/Plan Assessment/Plan IMPRESSION: 1. Exacerbation of COPD. 2. Right lung pneumonia. 3. Hypertension. DISCUSSION: The patient has been seen by ID and started on empiric antibiotics. I will continue steroids, decrease the dose, order pulmonary hygiene and oxygen. 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 Subjective Interval Events: Better Constitutional: Reports: no symptoms HEENT: Repors: no symptoms Respiratory: Reports: productive cough, shortness of breath Cardiovascular: Reports: no symptoms Gastrointestinal/Abdominal: Reports: no symptoms Allergies: Coded Allergies: No Known Allergies (Unverified , 08/08/17) Objective Last 24 Hour Vital Signs Date Time Temp Pulse Resp B/P (MAP) Pulse Ox O2 Delivery O2 Flow Rate FiO2 08/10/17 09:25 78 20 Nasal Cannula 2.0 28 08/10/17 09:25 Nasal Cannula 2.0 28 08/10/17 09:25 98 Nasal Cannula 2.0 28 08/10/17 08:00 81 08/10/17 08:00 97.1 81 18 132/92 98 Room Air 97.1 08/10/17 04:00 97.7 89 18 99/75 97 Room Air 97.7 08/10/17 04:00 77 08/10/17 00:00 97.0 80 16 102/73 93 Room Air 97.0 08/10/17 00:00 78 08/09/17 20:00 98.6 91 18 123/78 95 Room Air 98.6 08/09/17 20:00 84 08/09/17 19:22 Nasal Cannula 2.0 28 08/09/17 19:22 82 20 Nasal Cannula 2.0 28 08/09/17 19:22 97 Nasal Cannula 2.0 28 08/09/17 16:00 80 08/09/17 16:00 98.2 75 20 104/77 94 98.2 08/09/17 12:00 98.2 79 20 106/75 92 98.2 08/09/17 12:00 85 Intake and Output 08/09/17 08/10/17 19:00 07:00 Intake Total 840 ml 340 ml Balance 840 ml 340 ml Intake Oral 840 ml 240 ml IV Total 100 ml # Voids 4 # Bowel Movements 1 HEENT: normocephalic Respiratory/Chest: chest wall non-tender Cardiovascular: normal peripheral pulses, normal rate Laboratory Tests 08/09/17 18:30: D-Dimer 1.18H 08/10/17 09:00: Sodium Level 139, Potassium Level 3.9, Chloride Level 101, Carbon Dioxide Level 32, Anion Gap 6, Blood Urea Nitrogen 31H, Creatinine 1.1, Estimat Glomerular Filtration Rate , Glucose Level 107H, Calcium Level 9.0, Troponin I 0.000, Pro-B -Type Natriuretic Peptide 357H Current Medications Medications (Trade) Dose Ordered Sig/Sandie Route PRN Reason Start Time Stop Time Status Last Admin Dose Admin Acetaminophen (Tylenol) 650 mg Q4H PRN ORAL Mild Pain (Pain Scale 1-3) 08/08/17 21:15 09/07/17 21:14 Acetaminophen/ Hydrocodone Bitart ([place] 10/325) 1 tab Q4H PRN ORAL Moderate Pain (Pain Scale 4-6) 08/08/17 21:15 08/15/17 21:14 Albuterol/ Ipratropium (Albuterol/ Ipratropium) 3 ml Q4HR PRN HHN Shortness of Breath 08/08/17 21:15 08/13/17 21:14 Dextrose (Dextrose 50%) STAT PRN IV Hypoglycemia 08/08/17 21:15 09/07/17 21:14 Guaifenesin (Robitussin) 200 mg Q6H PRN ORAL For Cough 08/10/17 07:30 09/09/17 07:29 Heparin Sodium (Porcine) (Heparin 5000 units/ml) 5,000 units EVERY 12 HOURS SUBQ 08/09/17 09:00 09/08/17 08:59 08/10/17 08:50 Levofloxacin 100 ml @ 100 mls/hr Q24H IVPB 08/09/17 22:00 08/16/17 21:59 08/09/17 22:21 Methylprednisolone Sodium Succinate (Solu-MEDROL) 40 mg EVERY 12 HOURS IVP 08/09/17 21:00 09/07/17 21:59 08/10/17 08:49 Morphine Sulfate (Morphine Sulfate) 2 mg Q4HR PRN IVP Severe Pain (Pain Scale 7-10) 08/08/17 21:15 08/15/17 21:14 Ondansetron HCl (Zofran) 4 mg Q6H PRN IVP Nausea & Vomiting 08/08/17 21:15 09/07/17 21:14 Augustus Fink MD Aug 10, 2017 11:18
[2017-08-10 12:00] VITALS: BP 113/84
--- NOTE | 2017-08-10 14:32 | Infectious Diseases Prog Note ---
Assessment/Plan Problems: (1) CAP (community acquired pneumonia) Assessment & Plan: with B/L lower lobes infiltrates and RML infiltrates, continue levaquin empiric coverage, and send sputum culture , monitor CXR (2) COPD exacerbation Assessment & Plan: continue levaquin empiric coverage, continue inhalers , and taper steroids (3) Cough Assessment & Plan: due to the above, continue inhales and oxygen as needed (4) SOB (shortness of breath) Assessment & Plan: due to the above with no evidence of PE on CTA, continue inhalers and symptomatic treatment Subjective Constitutional: Reports: no symptoms HEENT: Reports: no symptoms Respiratory: Reports: dry cough Breasts: Reports: no symptoms Cardiovascular: Reports: no symptoms Gastrointestinal/Abdominal: Reports: no symptoms Genitourinary: Reports: no symptoms Neurologic: Reports: no symptoms Psychiatric: Reports: no symptoms Skin: Reports: no symptoms Endocrine: Reports: no symptoms Hematologic: Reports: no symptoms Musculoskeletal: Reports: no symptoms Allergies: Coded Allergies: No Known Allergies (Unverified , 08/08/17) Objective Vital Signs Last 24 Hour Vital Signs Date Time Temp Pulse Resp B/P (MAP) Pulse Ox O2 Delivery O2 Flow Rate FiO2 08/10/17 12:00 67 08/10/17 12:00 97.2 72 18 113/84 97 Room Air 97.2 08/10/17 09:25 78 20 Nasal Cannula 2.0 28 08/10/17 09:25 Nasal Cannula 2.0 28 08/10/17 09:25 98 Nasal Cannula 2.0 28 08/10/17 08:00 81 08/10/17 08:00 97.1 81 18 132/92 98 Room Air 97.1 08/10/17 04:00 97.7 89 18 99/75 97 Room Air 97.7 08/10/17 04:00 77 08/10/17 00:00 97.0 80 16 102/73 93 Room Air 97.0 08/10/17 00:00 78 08/09/17 20:00 98.6 91 18 123/78 95 Room Air 98.6 08/09/17 20:00 84 08/09/17 19:22 Nasal Cannula 2.0 28 08/09/17 19:22 82 20 Nasal Cannula 2.0 28 08/09/17 19:22 97 Nasal Cannula 2.0 28 08/09/17 16:00 80 08/09/17 16:00 98.2 75 20 104/77 94 98.2 Height (Feet): 6 Height (Inches): 0.00 Weight (Pounds): 150 General Appearance: WD/WN, no acute distress HEENT: normocephalic, atraumatic, anicteric, mucous membranes moist Respiratory/Chest: chest wall non-tender, no respiratory distress, no accessory muscle use, decreased breath sounds, expiratory wheezing Cardiovascular: normal peripheral pulses, normal rate, regular rhythm, no gallop/murmur, no JVD Abdomen: normal bowel sounds, soft, non tender, no organomegaly, non distended , no mass Extremities: no cyanosis, no clubbing Skin: no rash, no lesions Neurologic/Psychiatric: alert, responsive Lymphatic: no neck adenopathy, no groin adenopathy Laboratory Tests Test 08/09/17 18:30 08/10/17 09:00 D-Dimer 1.18 mg/L FEU (0.00-0.49) H Sodium Level 139 MMOL/L (136-145) Potassium Level 3.9 MMOL/L (3.5-5.1) Chloride Level 101 MMOL/L (98-107) Carbon Dioxide Level 32 MMOL/L (21-32) Anion Gap 6 mmol/L (5-15) Blood Urea Nitrogen 31 mg/dL (7-18) H Creatinine 1.1 MG/DL (0.55-1.30) Estimat Glomerular Filtration Rate mL/min (>60) Glucose Level 107 MG/DL (74-106) H Calcium Level 9.0 MG/DL (8.5-10.1) Troponin I 0.000 ng/mL (0.000-0.056) Pro-B-Type Natriuretic Peptide 357 pg/mL (0-125) H Current Medications Medications (Trade) Dose Ordered Sig/Sandie Route PRN Reason Start Time Stop Time Status Last Admin Dose Admin Acetaminophen (Tylenol) 650 mg Q4H PRN ORAL Mild Pain (Pain Scale 1-3) 08/08/17 21:15 09/07/17 21:14 Acetaminophen/ Hydrocodone Bitart ([place] 10/325) 1 tab Q4H PRN ORAL Moderate Pain (Pain Scale 4-6) 08/08/17 21:15 08/15/17 21:14 Albuterol/ Ipratropium (Albuterol/ Ipratropium) 3 ml Q4HR PRN HHN Shortness of Breath 08/08/17 21:15 08/13/17 21:14 Dextrose (Dextrose 50%) STAT PRN IV Hypoglycemia 08/08/17 21:15 09/07/17 21:14 Guaifenesin (Robitussin) 200 mg Q6H PRN ORAL For Cough 08/10/17 07:30 09/09/17 07:29 08/10/17 11:58 Heparin Sodium (Porcine) (Heparin 5000 units/ml) 5,000 units EVERY 12 HOURS SUBQ 08/09/17 09:00 09/08/17 08:59 08/10/17 08:50 Levofloxacin 100 ml @ 100 mls/hr Q24H IVPB 08/09/17 22:00 08/16/17 21:59 08/09/17 22:21 Methylprednisolone Sodium Succinate (Solu-MEDROL) 40 mg EVERY 12 HOURS IVP 08/09/17 21:00 09/07/17 21:59 08/10/17 08:49 Morphine Sulfate (Morphine Sulfate) 2 mg Q4HR PRN IVP Severe Pain (Pain Scale 7-10) 08/08/17 21:15 08/15/17 21:14 Ondansetron HCl (Zofran) 4 mg Q6H PRN IVP Nausea & Vomiting 08/08/17 21:15 09/07/17 21:14 Linda Roca M.D. Aug 10, 2017 14:32
[2017-08-10 16:00] VITALS: BP 123/81
--- NOTE | 2017-08-10 16:09 | Cardiac Electrophysiology PN ---
Assessment/Plan Assessment/Plan 1. Shortness of breath. Ruled out [place]. EF 60%. Likely due to COPD. Brain natriuretic peptide only 357 2. COPD and asthma and pneumonia, on Solu-Medrol, Levaquin and albuterol. 3. History of hypertension. Off BP meds stable DW RN Subjective Subjective EF 60%. No chest pain. shortness of breath better. Objective Last 24 Hour Vital Signs Date Time Temp Pulse Resp B/P (MAP) Pulse Ox O2 Delivery O2 Flow Rate FiO2 08/10/17 16:00 97.2 77 20 123/81 96 Room Air 97.2 08/10/17 12:00 67 08/10/17 12:00 97.2 72 18 113/84 97 Room Air 97.2 08/10/17 09:25 78 20 Nasal Cannula 2.0 28 08/10/17 09:25 Nasal Cannula 2.0 28 08/10/17 09:25 98 Nasal Cannula 2.0 28 08/10/17 08:00 81 08/10/17 08:00 97.1 81 18 132/92 98 Room Air 97.1 08/10/17 04:00 97.7 89 18 99/75 97 Room Air 97.7 08/10/17 04:00 77 08/10/17 00:00 97.0 80 16 102/73 93 Room Air 97.0 08/10/17 00:00 78 08/09/17 20:00 98.6 91 18 123/78 95 Room Air 98.6 08/09/17 20:00 84 08/09/17 19:22 Nasal Cannula 2.0 28 08/09/17 19:22 82 20 Nasal Cannula 2.0 28 08/09/17 19:22 97 Nasal Cannula 2.0 28 Intake and Output 08/09/17 08/10/17 19:00 07:00 Intake Total 840 ml 340 ml Balance 840 ml 340 ml Intake Oral 840 ml 240 ml IV Total 100 ml # Voids 4 # Bowel Movements 1 Laboratory Tests Test 08/09/17 18:30 08/10/17 09:00 D-Dimer 1.18 mg/L FEU (0.00-0.49) H Sodium Level 139 MMOL/L (136-145) Potassium Level 3.9 MMOL/L (3.5-5.1) Chloride Level 101 MMOL/L (98-107) Carbon Dioxide Level 32 MMOL/L (21-32) Anion Gap 6 mmol/L (5-15) Blood Urea Nitrogen 31 mg/dL (7-18) H Creatinine 1.1 MG/DL (0.55-1.30) Estimat Glomerular Filtration Rate mL/min (>60) Glucose Level 107 MG/DL (74-106) H Calcium Level 9.0 MG/DL (8.5-10.1) Troponin I 0.000 ng/mL (0.000-0.056) Pro-B-Type Natriuretic Peptide 357 pg/mL (0-125) H Objective HEAD AND NECK: Showed no JVD. LUNGS: Coarse rhonchi with wheezes. CARDIOVASCULAR: Shows regular S1 and S2 with no gallop or murmur. ABDOMEN: Soft and nontender. EXTREMITIES: No pitting edema. VICTOR M SPENCER Aug 10, 2017 16:09
[2017-08-10 20:00] VITALS: BP 138/68
[2017-08-10] MEDS: Latanoprost 0.005% Opth 2.5ml Soln BOTH EYES SCH (21:55)
[2017-08-11] VITALS: BP 126/72
[2017-08-11 04:00] VITALS: BP 123/78
[2017-08-11 08:00] VITALS: BP 109/81
[2017-08-11] MEDS: Heparin 5000 units/ml inj SUBQ SCH ×2 (08:47→21:14)
[2017-08-11] MEDS: Solu-MEDROL 40mg Inj IVP SCH ×2 (08:51→21:14)
--- NOTE | 2017-08-11 09:36 | Pulmonology Progress Note ---
Assessment/Plan Assessment/Plan IMPRESSION: 1. Exacerbation of COPD. 2. Right lung pneumonia. 3. Hypertension. DISCUSSION: The patient has been seen by ID and started on empiric antibiotics. I will continue steroids, decrease the dose; may switch to PO steroids. Continue pulmonary hygiene and oxygen. 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 Subjective Interval Events: Better Constitutional: Reports: no symptoms HEENT: Repors: no symptoms Respiratory: Reports: no symptoms Cardiovascular: Reports: no symptoms Gastrointestinal/Abdominal: Reports: no symptoms Allergies: Coded Allergies: No Known Allergies (Unverified , 08/08/17) Objective Last 24 Hour Vital Signs Date Time Temp Pulse Resp B/P (MAP) Pulse Ox O2 Delivery O2 Flow Rate FiO2 08/11/17 08:00 97.7 67 18 109/81 94 Room Air 97.7 08/11/17 07:25 74 18 Nasal Cannula 2.0 28 08/11/17 07:25 97 Nasal Cannula 2.0 28 08/11/17 07:25 Nasal Cannula 2.0 28 08/11/17 04:00 97.2 62 20 123/78 94 Room Air 97.2 08/11/17 04:00 58 08/11/17 00:00 98.1 63 20 126/72 97 Room Air 98.1 08/11/17 00:00 66 08/10/17 20:00 98.1 93 20 138/68 94 Room Air 98.1 08/10/17 20:00 61 08/10/17 19:36 97 18 Nasal Cannula 2.0 28 08/10/17 19:36 93 Nasal Cannula 2.0 28 08/10/17 19:36 Nasal Cannula 2.0 28 08/10/17 16:00 78 08/10/17 16:00 97.2 77 20 123/81 96 Room Air 97.2 08/10/17 12:00 67 08/10/17 12:00 97.2 72 18 113/84 97 Room Air 97.2 Intake and Output 08/10/17 08/11/17 19:00 07:00 Intake Total 800 ml 200 ml Balance 800 ml 200 ml Intake Oral 800 ml 100 ml IV Total 100 ml # Voids 4 # Bowel Movements 1 1 General Appearance: no acute distress HEENT: normocephalic Respiratory/Chest: chest wall non-tender, lungs clear Cardiovascular: normal peripheral pulses, normal rate Current Medications Medications (Trade) Dose Ordered Sig/Sandie Route PRN Reason Start Time Stop Time Status Last Admin Dose Admin Acetaminophen (Tylenol) 650 mg Q4H PRN ORAL Mild Pain (Pain Scale 1-3) 08/08/17 21:15 09/07/17 21:14 Acetaminophen/ Hydrocodone Bitart ([place] 10/325) 1 tab Q4H PRN ORAL Moderate Pain (Pain Scale 4-6) 08/08/17 21:15 08/15/17 21:14 Albuterol/ Ipratropium (Albuterol/ Ipratropium) 3 ml Q4HR PRN HHN Shortness of Breath 08/08/17 21:15 08/13/17 21:14 Dextrose (Dextrose 50%) STAT PRN IV Hypoglycemia 08/08/17 21:15 09/07/17 21:14 Guaifenesin (Robitussin) 200 mg Q6H PRN ORAL For Cough 08/10/17 07:30 09/09/17 07:29 08/10/17 11:58 Heparin Sodium (Porcine) (Heparin 5000 units/ml) 5,000 units EVERY 12 HOURS SUBQ 08/09/17 09:00 09/08/17 08:59 08/10/17 21:54 Latanoprost (Xalatan) 1 drop BEDTIME BOTH EYES 08/10/17 21:00 09/09/17 20:59 08/10/17 21:55 Levofloxacin 100 ml @ 100 mls/hr Q24H IVPB 08/09/17 22:00 08/16/17 21:59 08/10/17 21:55 Methylprednisolone Sodium Succinate (Solu-MEDROL) 40 mg EVERY 12 HOURS IVP 08/09/17 21:00 09/07/17 21:59 08/11/17 08:51 Morphine Sulfate (Morphine Sulfate) 2 mg Q4HR PRN IVP Severe Pain (Pain Scale 7-10) 08/08/17 21:15 08/15/17 21:14 Ondansetron HCl (Zofran) 4 mg Q6H PRN IVP Nausea & Vomiting 08/08/17 21:15 09/07/17 21:14 Augustus Fink MD Aug 11, 2017 09:36
--- NOTE | 2017-08-11 11:48 | Nephrology Progress Note ---
Assessment/Plan Problem List: (1) COPD exacerbation (2) CAP (community acquired pneumonia) (3) SOB (shortness of breath) (4) HTN (hypertension) Plan cont empiric abx per ID. cont steroids and neb breathing tx. pulm ID and cardio following. Subjective Subjective late entry for 08/10 - Feeling better. Objective Objective Last 24 Hour Vital Signs Date Time Temp Pulse Resp B/P (MAP) Pulse Ox O2 Delivery O2 Flow Rate FiO2 08/11/17 08:00 97.7 67 18 109/81 94 Room Air 97.7 08/11/17 07:25 74 18 Nasal Cannula 2.0 28 08/11/17 07:25 97 Nasal Cannula 2.0 28 08/11/17 07:25 Nasal Cannula 2.0 28 08/11/17 04:00 97.2 62 20 123/78 94 Room Air 97.2 08/11/17 04:00 58 08/11/17 00:00 98.1 63 20 126/72 97 Room Air 98.1 08/11/17 00:00 66 08/10/17 20:00 98.1 93 20 138/68 94 Room Air 98.1 08/10/17 20:00 61 08/10/17 19:36 97 18 Nasal Cannula 2.0 28 08/10/17 19:36 93 Nasal Cannula 2.0 28 08/10/17 19:36 Nasal Cannula 2.0 28 08/10/17 16:00 78 08/10/17 16:00 97.2 77 20 123/81 96 Room Air 97.2 08/10/17 12:00 67 08/10/17 12:00 97.2 72 18 113/84 97 Room Air 97.2 Intake and Output 08/10/17 08/11/17 19:00 07:00 Intake Total 800 ml 200 ml Balance 800 ml 200 ml Intake Oral 800 ml 100 ml IV Total 100 ml # Voids 4 # Bowel Movements 1 1 Height (Feet): 6 Height (Inches): 0.00 Weight (Pounds): 150 General Appearance: no apparent distress Cardiovascular: normal rate, regular rhythm Respiratory/Chest: decreased breath sounds Abdomen: non tender, soft OZIELDAMION Aug 11, 2017 11:48
[2017-08-11 12:00] VITALS: BP 119/88
--- NOTE | 2017-08-11 15:00 | Infectious Diseases Prog Note ---
Assessment/Plan Problems: (1) CAP (community acquired pneumonia) Assessment & Plan: with B/L lower lobes infiltrates and RML infiltrates, improving on levaquin empiric coverage, sputum culture was not collected , will need levaquin for 7-10 days (2) COPD exacerbation Assessment & Plan: continue levaquin empiric coverage, continue inhalers , and taper steroids (3) Cough Assessment & Plan: due to the above, continue inhales and oxygen as needed (4) SOB (shortness of breath) Assessment & Plan: improving, due to the above with no evidence of PE on CTA, continue inhalers and symptomatic treatment Subjective Constitutional: Reports: no symptoms HEENT: Reports: no symptoms Respiratory: Reports: no symptoms Breasts: Reports: no symptoms Cardiovascular: Reports: no symptoms Gastrointestinal/Abdominal: Reports: no symptoms Genitourinary: Reports: no symptoms Neurologic: Reports: no symptoms Psychiatric: Reports: no symptoms Skin: Reports: no symptoms Endocrine: Reports: no symptoms Hematologic: Reports: no symptoms Musculoskeletal: Reports: no symptoms Allergies: Coded Allergies: No Known Allergies (Unverified , 08/08/17) Objective Vital Signs Last 24 Hour Vital Signs Date Time Temp Pulse Resp B/P (MAP) Pulse Ox O2 Delivery O2 Flow Rate FiO2 08/11/17 08:00 97.7 67 18 109/81 94 Room Air 97.7 08/11/17 08:00 71 08/11/17 07:25 74 18 Nasal Cannula 2.0 28 08/11/17 07:25 97 Nasal Cannula 2.0 28 08/11/17 07:25 Nasal Cannula 2.0 28 08/11/17 04:00 97.2 62 20 123/78 94 Room Air 97.2 08/11/17 04:00 58 08/11/17 00:00 98.1 63 20 126/72 97 Room Air 98.1 08/11/17 00:00 66 08/10/17 20:00 98.1 93 20 138/68 94 Room Air 98.1 08/10/17 20:00 61 08/10/17 19:36 97 18 Nasal Cannula 2.0 28 08/10/17 19:36 93 Nasal Cannula 2.0 28 08/10/17 19:36 Nasal Cannula 2.0 28 08/10/17 16:00 78 08/10/17 16:00 97.2 77 20 123/81 96 Room Air 97.2 Height (Feet): 6 Height (Inches): 0.00 Weight (Pounds): 150 General Appearance: WD/WN, no acute distress HEENT: normocephalic, atraumatic, anicteric, mucous membranes moist, PERRL Respiratory/Chest: chest wall non-tender, lungs clear, normal breath sounds, no respiratory distress, no accessory muscle use, decreased breath sounds Cardiovascular: normal peripheral pulses, normal rate, regular rhythm, no gallop/murmur, no JVD Abdomen: normal bowel sounds, soft, non tender, no organomegaly, non distended , no mass, no scars Extremities: no cyanosis, no clubbing Skin: no rash, no lesions, no ulcers Neurologic/Psychiatric: alert, oriented x 3 Lymphatic: no neck adenopathy, no groin adenopathy Current Medications Medications (Trade) Dose Ordered Sig/Sandie Route PRN Reason Start Time Stop Time Status Last Admin Dose Admin Acetaminophen (Tylenol) 650 mg Q4H PRN ORAL Mild Pain (Pain Scale 1-3) 08/08/17 21:15 09/07/17 21:14 Acetaminophen/ Hydrocodone Bitart ([place] 10/325) 1 tab Q4H PRN ORAL Moderate Pain (Pain Scale 4-6) 08/08/17 21:15 08/15/17 21:14 Albuterol/ Ipratropium (Albuterol/ Ipratropium) 3 ml Q4HR PRN HHN Shortness of Breath 08/08/17 21:15 08/13/17 21:14 Dextrose (Dextrose 50%) STAT PRN IV Hypoglycemia 08/08/17 21:15 09/07/17 21:14 Guaifenesin (Robitussin) 200 mg Q6H PRN ORAL For Cough 08/10/17 07:30 09/09/17 07:29 08/10/17 11:58 Heparin Sodium (Porcine) (Heparin 5000 units/ml) 5,000 units EVERY 12 HOURS SUBQ 08/09/17 09:00 09/08/17 08:59 08/10/17 21:54 Latanoprost (Xalatan) 1 drop BEDTIME BOTH EYES 08/10/17 21:00 09/09/17 20:59 08/10/17 21:55 Levofloxacin 100 ml @ 100 mls/hr Q24H IVPB 08/09/17 22:00 08/16/17 21:59 08/10/17 21:55 Methylprednisolone Sodium Succinate (Solu-MEDROL) 40 mg EVERY 12 HOURS IVP 08/09/17 21:00 09/07/17 21:59 08/11/17 08:51 Morphine Sulfate (Morphine Sulfate) 2 mg Q4HR PRN IVP Severe Pain (Pain Scale 7-10) 08/08/17 21:15 08/15/17 21:14 Ondansetron HCl (Zofran) 4 mg Q6H PRN IVP Nausea & Vomiting 08/08/17 21:15 09/07/17 21:14 Linda Roca M.D. Aug 11, 2017 15:00
[2017-08-11 16:00] VITALS: BP 116/79
[2017-08-11 20:00] VITALS: BP 134/91
[2017-08-11] MEDS: Latanoprost 0.005% Opth 2.5ml Soln BOTH EYES SCH (21:13)
[2017-08-12] VITALS: BP 132/87
[2017-08-12 04:00] VITALS: BP 135/86
[2017-08-12 08:00] VITALS: BP 118/84
[2017-08-12] MEDS: Solu-MEDROL 40mg Inj IVP SCH (08:04)
[2017-08-12] MEDS: Heparin 5000 units/ml inj SUBQ SCH (08:04)
--- NOTE | 2017-08-12 10:20 | Pulmonology Progress Note ---
Assessment/Plan Assessment/Plan IMPRESSION: 1. Exacerbation of COPD. 2. Right lung pneumonia. 3. Hypertension. DISCUSSION: The patient has been seen by ID and started on empiric antibiotics. I will continue steroids, decrease the dose; may switch to PO steroids. Continue pulmonary hygiene and oxygen. 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 OK to dc on PO steroids Subjective Interval Events: Doing better Constitutional: Reports: no symptoms HEENT: Repors: no symptoms Respiratory: Reports: no symptoms Cardiovascular: Reports: no symptoms Gastrointestinal/Abdominal: Reports: no symptoms Allergies: Coded Allergies: No Known Allergies (Unverified , 08/08/17) Objective Last 24 Hour Vital Signs Date Time Temp Pulse Resp B/P (MAP) Pulse Ox O2 Delivery O2 Flow Rate FiO2 08/12/17 08:00 97.9 64 18 118/84 94 Room Air 97.9 08/12/17 08:00 67 08/12/17 04:00 97.7 62 18 135/86 93 Room Air 97.7 08/12/17 04:00 59 08/12/17 00:00 60 08/12/17 00:00 97.9 60 20 132/87 94 Room Air 97.9 08/11/17 20:00 58 08/11/17 20:00 97.5 59 18 134/91 95 Room Air 97.5 08/11/17 16:00 97.0 72 16 116/79 95 Room Air 97.0 08/11/17 15:24 61 08/11/17 12:00 97.7 54 18 119/88 94 Room Air 97.7 08/11/17 11:27 58 Intake and Output 08/11/17 08/12/17 19:00 07:00 Intake Total 360 ml 200 ml Balance 360 ml 200 ml Intake Oral 360 ml 200 ml # Voids 2 # Bowel Movements 1 1 General Appearance: no acute distress HEENT: normocephalic Respiratory/Chest: chest wall non-tender, lungs clear Cardiovascular: normal peripheral pulses, normal rate Current Medications Medications (Trade) Dose Ordered Sig/Sandie Route PRN Reason Start Time Stop Time Status Last Admin Dose Admin Acetaminophen (Tylenol) 650 mg Q4H PRN ORAL Mild Pain (Pain Scale 1-3) 08/08/17 21:15 09/07/17 21:14 Acetaminophen/ Hydrocodone Bitart ([place] 10/325) 1 tab Q4H PRN ORAL Moderate Pain (Pain Scale 4-6) 08/08/17 21:15 08/15/17 21:14 Albuterol/ Ipratropium (Albuterol/ Ipratropium) 3 ml Q4HR PRN HHN Shortness of Breath 08/08/17 21:15 08/13/17 21:14 Dextrose (Dextrose 50%) STAT PRN IV Hypoglycemia 08/08/17 21:15 09/07/17 21:14 Guaifenesin (Robitussin) 200 mg Q6H PRN ORAL For Cough 08/10/17 07:30 09/09/17 07:29 08/10/17 11:58 Heparin Sodium (Porcine) (Heparin 5000 units/ml) 5,000 units EVERY 12 HOURS SUBQ 08/09/17 09:00 09/08/17 08:59 08/11/17 21:14 Latanoprost (Xalatan) 1 drop BEDTIME BOTH EYES 08/10/17 21:00 09/09/17 20:59 08/11/17 21:13 Levofloxacin 100 ml @ 100 mls/hr Q24H IVPB 08/09/17 22:00 08/16/17 21:59 08/11/17 21:14 Methylprednisolone Sodium Succinate (Solu-MEDROL) 40 mg EVERY 12 HOURS IVP 08/09/17 21:00 09/07/17 21:59 08/12/17 08:04 Morphine Sulfate (Morphine Sulfate) 2 mg Q4HR PRN IVP Severe Pain (Pain Scale 7-10) 08/08/17 21:15 08/15/17 21:14 Ondansetron HCl (Zofran) 4 mg Q6H PRN IVP Nausea & Vomiting 08/08/17 21:15 09/07/17 21:14 Augustus Fink MD Aug 12, 2017 10:20
--- NOTE | 2017-08-12 11:40 | Nephrology Progress Note ---
Assessment/Plan Problem List: (1) COPD exacerbation (2) CAP (community acquired pneumonia) (3) SOB (shortness of breath) (4) HTN (hypertension) Plan cont empiric abx per ID. cont steroids and neb breathing tx. pulm ID and cardio following. Subjective Subjective late entry for 08/11 - SOB improving. No fever. Objective Objective Last 24 Hour Vital Signs Date Time Temp Pulse Resp B/P (MAP) Pulse Ox O2 Delivery O2 Flow Rate FiO2 08/12/17 08:00 97.9 64 18 118/84 94 Room Air 97.9 08/12/17 08:00 67 08/12/17 04:00 97.7 62 18 135/86 93 Room Air 97.7 08/12/17 04:00 59 08/12/17 00:00 60 08/12/17 00:00 97.9 60 20 132/87 94 Room Air 97.9 08/11/17 20:00 58 08/11/17 20:00 97.5 59 18 134/91 95 Room Air 97.5 08/11/17 16:00 97.0 72 16 116/79 95 Room Air 97.0 08/11/17 15:24 61 08/11/17 12:00 97.7 54 18 119/88 94 Room Air 97.7 Intake and Output 08/11/17 08/12/17 19:00 07:00 Intake Total 360 ml 200 ml Balance 360 ml 200 ml Intake Oral 360 ml 200 ml # Voids 2 # Bowel Movements 1 1 Height (Feet): 6 Height (Inches): 0.00 Weight (Pounds): 150 Cardiovascular: normal rate, regular rhythm Respiratory/Chest: decreased breath sounds Abdomen: non tender, soft Extremities: non-pitting Neurologic: alert, oriented x 3 DAMION LUDWIG Aug 12, 2017 11:40
--- NOTE | 2017-08-12 11:44 | Discharge Summary ---
Discharge Summary Hospital Course Date of Admission Aug 08, 2017 at 18:25 Date of Discharge 08/12/17 Admitting Diagnosis COPD HPI Pramod Robles is a 72 year old male who was admitted on Aug 08, 2017 at 18:25 for Chronic Obstructive Pulmonary Disease Consultations Cardio - Dr. Coelho. Pulm - Dr. Fink. ID - Dr. Roca. Hospital Course Patient was started empirically on levofloxacin. He was also started on IV steroids and DuoNeb breathing tx. His symptoms improved. His echocardiogram showed EF 60%. He remained hemodynamically stable and was cleared for discharge. Discharge Condition Upon Discharge: stable Discharge Disposition Patient was discharged to home. Discharge Diagnoses: (1) COPD exacerbation (2) CAP (community acquired pneumonia) (3) SOB (shortness of breath) (4) HTN (hypertension) DAMION LUDWIG Aug 12, 2017 11:44
[2017-08-12 12:00] VITALS: BP 130/94
[2017-08-12] MEDS ORDERED: NS 275ml ONE (12:49)
[2017-08-12] MEDS ORDERED: Tubing IV Secondary IV ONE (12:49)
--- NOTE | 2017-08-12 17:44 | Cardiology Report ---
APPROVED REPORT EXAM: Two-dimensional and M-mode echocardiogram with Doppler and color Doppler. INDICATION Chest Pain M-Mode DIMENSIONS IVSd0.8 (0.7-1.1cm)Left Atrium (MM)2.6 (1.6-4.0cm) LVDd3.5 (3.5-5.6cm)Aortic Root2.7 (2.0-3.7cm) PWd0.7 (0.7-1.1cm)Aortic Cusp Exc.1.8 (1.5-2.0cm) LVDs1.4 (2.5-4.0cm) PWs1.7 cm Technically difficult study with poor endocardial definition in apical views Grossly normal left ventricular chamber size, systolic function and wall motion. Left ventricular ejection fraction estimated to be 60 %. No evidence of left ventricular hypertrophy. Anterior Echo-free space, may be due to pericardial fat or effusion. All other cardiac chamber sizes are within normal limits. Focal aortic valve sclerosis with adequate cusp excursion. Thickened mitral valve leaflets with normal excursion. Mild mitral annulus and aortic root calcification. Pulmonic valve not visualized. Normal tricuspid valve structure. IVC dilated at 2.4 cm with physiological collapse. A color flow and spectral Doppler study was performed and revealed: No aortic insufficiency. Trace mitral regurgitation. Mitral diastolic velocities suggestive of normal diastolic function. Mild tricuspid regurgitation. Tricuspid systolic velocities suggests peak right ventricular systolic pressure of 49 mmHg, consistent with moderate pulmonary hypertension.
--- NOTE | 2017-08-12 18:49 | Cardiology Report ---
APPROVED REPORT EKG Measurement Heart [id number] Normal sinus rhythm Right atrial enlargement Borderline ECG
== END 2017-08-12 12:50 | disposition home or self-care (01) | DRG 190 ==
LOC: EMR 14:55 → EDBEDREQ 18:11 → 2E 18:25
DX: J44.0 Chronic obstructive pulmonary disease with (acute) lower respiratory infection (principal); J18.9 Pneumonia, unspecified organism; J44.1 Chronic obstructive pulmonary disease with (acute) exacerbation; I10 Essential (primary) hypertension; Z87.891 Personal history of nicotine dependence
CPT/HCPCS: 36415; 36600; 71045; 71275; 80048; 80053; 82803; 83880; 84484; 85007; 85025; 85379; 93005; 93306; 94640; 94664; 94760; 99285